=== PATIENT | male | born 1975 | race Caucasian/White ===

== ENCOUNTER 2017-09-19 09:18 | Emergency (ER) | payer OTHER ==
[2017-09-19] MEDS: NS 1,000 ML IV (10:00)
[2017-09-19] MEDS: ONDANSETRON 4MG/2ML VIAL (J2405) IV (10:00)
[2017-09-19 10:11] LABS: BASO % 0.9 % (0.0-1.0); EOS # 0.1 10^3/uL (0.0-0.50); EOS % 1.3 % (0.0-3.0); IMMATURE GRANULOCYTE % 0.4 % (0-0); LYMPH # 1.2 10^3/uL (1.5-4.5); LYMPH % 27.6 % (24.0-44.0); MEAN CORPUSCULAR HEMOGLOBIN 30.1 pg (27.0-33.0); MEAN CORPUSCULAR HGB CONC 34.7 g/dl (32.0-36.5); MEAN CORPUSCULAR VOLUME 86.9 fl (80.0-96.0); MONO # 0.6 10^3/uL (0.0-0.8); MONO % 13.3 % (0.0-5.0); NEUTROPHILS # 2.5 10^3/uL (1.8-7.7); NEUTROPHILS % 56.5 % (36.0-66.0); PLATELET COUNT, AUTOMATED 162 10^3/uL (150-450); RED CELL DISTRIBUTION WIDTH 12.5 % (11.5-14.5); WHITE BLOOD COUNT 4.5 10^3/uL (4.0-10.0)
[2017-09-19 10:17] LABS: KETONE, URINE AUTO RFX TRACE mg/dL (NEGATIVE); LEUKOCYTE ESTERASE UR AUTO RFX NEGATIVE (NEGATIVE); MUCUS, URINE RFX LARGE (NEGATIVE); NITRITE, URINE AUTO RFX NEGATIVE (NEGATIVE); RBC, URINE AUTO RFX 3 /HPF (0-3); SPECIFIC GRAVITY UR AUTO RFX 1.026 (1.002-1.035); SQUAM EPITHELIAL CELL UR AURFX 0 /HPF (0-6); WBC, URINE AUTO RFX 3 /HPF (0-3)
[2017-09-19 10:28] LABS: ALBUMIN 4.4 GM/DL (3.2-5.2); ALBUMIN/GLOBULIN RATIO 1.22 (1.00-1.93); ALKALINE PHOSPHATASE 73 U/L (45-117); ALT/SGPT 41 U/L (12-78); ANION GAP 6 MEQ/L (8-16); AST/SGOT 18 U/L (7-37); BILIRUBIN,DIRECT 0.2 MG/DL (0.0-0.2); BILIRUBIN,TOTAL 0.6 MG/DL (0.2-1.0); BLOOD UREA NITROGEN 13 MG/DL (7-18); CALCIUM LEVEL 8.6 MG/DL (8.5-10.1); CARBON DIOXIDE LEVEL 29 MEQ/L (21-32); CHLORIDE LEVEL 101 MEQ/L (98-107); CREATININE FOR GFR 1.01 MG/DL (0.70-1.30); GLOMERULAR FILTRATION RATE > 60.0 (>60); GLUCOSE, FASTING 88 MG/DL (70-105); POTASSIUM SERUM 3.8 MEQ/L (3.5-5.1); SODIUM LEVEL 136 MEQ/L (136-145)
== END 2017-09-19 11:38 | disposition home or self-care (01) ==
LOC: M ED 09:18
DX: K52.9 Noninfective gastroenteritis and colitis, unspecified (principal)
CPT/HCPCS: J2405

== ENCOUNTER → 2018-01-22 | Outpatient (CLI) | payer OTHER | LOC: M WUC 16:59 | DX: R06.02 Shortness of breath (principal) | CPT/HCPCS: 71046 ==

== ENCOUNTER → 2018-05-10 | Outpatient (CLI) | payer OTHER | LOC: M WUC 14:43 | DX: S00.83XA Contusion of other part of head, initial encounter (principal); Y92.89 Other specified places as the place of occurrence of the external cause; Y93.89 Activity, other specified; Y99.8 Other external cause status; X58.XXXA Exposure to other specified factors, initial encounter | CPT/HCPCS: 70110 ==

== ENCOUNTER 2018-05-16 15:44 | Emergency (ER) | payer OTHER | END 2018-05-16 18:08 | disposition home or self-care (01) | LOC: M ED 15:44 | DX: S86.812A Strain of other muscle(s) and tendon(s) at lower leg level, left leg, initial encounter (principal); X50.9XXA Other and unspecified overexertion or strenuous movements or postures, initial encounter; Y92.009 Unspecified place in unspecified non-institutional (private) residence as the place of occurrence of the external cause; Z87.891 Personal history of nicotine dependence; Z79.899 Other long term (current) drug therapy | CPT/HCPCS: 73564 ==

== ENCOUNTER → 2018-06-20 | Outpatient (CLI) | payer OTHER | LOC: M RAD 16:15 | DX: M26.622 Arthralgia of left temporomandibular joint (principal) | CPT/HCPCS: 70486 ==

== ENCOUNTER 2019-07-31 08:12 | Outpatient (RCR) | payer OTHER ==
[~2019-07-31 08:12] MED LIST: ASPI-161 PO; AVEL1TAB2 OR; GABA-1171; IBUP800T OR; No Historical Meds; TESS100C OR; TRAM50TA2 PO; ZOFR4TAB14 PO; ZOLP10TA2
== END 2019-08-26 ==
LOC: M OT 08:12
PROVIDERS: ATTEND Physician Assistant Medical
DX: Z47.89 Encounter for other orthopedic aftercare (principal)

== ENCOUNTER → 2019-09-05 | Outpatient (CLI) | payer OTHER ==
[2019-09-05 13:36] LABS: CORTISOL BASELINE 19.5 UG/DL (4.3-22.4); FOLLICLE STIMULATING HORMONE 6.8 mIU/mL (1.4-18.1); FREE T4 0.68 NG/DL (0.76-1.46); LUTEINIZING HORMONE 4.1 mIU/mL (1.5-9.3); PROLACTIN 0.5 NG/ML (2.1-17.7); THYROID STIMULATING HORMONE 0.777 uIU/ML (0.358-3.740)
== END ==
LOC: M WUC 10:10
PROVIDERS: ATTEND Internal Medicine Endocrinology, Diabetes & Metabolism
DX: R94.6 Abnormal results of thyroid function studies (principal)

== ENCOUNTER → 2023-06-05 | Outpatient (REF) | payer OTHER | LOC: M WUC 10:33 | PROVIDERS: ATTEND Registered Nurse | DX: H60.12 Cellulitis of left external ear (principal) ==

== ENCOUNTER → 2024-03-07 | Outpatient (CLI) | payer OTHER ==
[~2024-03-07] MED LIST changes: -ASPI-161 PO; +ASPI-615 PO
[2024-03-07 18:20] LABS: HEMATOCRIT 45.3 % (42.0-52.0); HEMOGLOBIN 15.4 g/dl (13.5-17.5); MEAN CORPUSCULAR VOLUME 91.1 fl (80.0-96.0); PLATELET COUNT, AUTOMATED 144 10^3/uL (150-450); RED BLOOD COUNT 4.97 10^6/uL (4.30-6.10)
[2024-03-07 18:39] LABS: APPEARANCE, URINE CLEAR (CLEAR); BACTERIA, URINE AUTO NEGATIVE (NEGATIVE); BILIRUBIN, URINE AUTO NEGATIVE (NEGATIVE); BLOOD, URINE BLOOD NEGATIVE (NEGATIVE); COLOR, URINE YELLOW (YELLOW); GLUCOSE, URINE (UA) AUTO NEGATIVE (NEGATIVE); KETONE, URINE AUTO NEGATIVE (NEGATIVE); LEUKOCYTE ESTERASE, URINE AUTO NEGATIVE (NEGATIVE); MUCUS, URINE SMALL (NEGATIVE); NITRITE, URINE AUTO NEGATIVE (NEGATIVE); PROTEIN, URINE AUTO NEGATIVE (NEGATIVE); RBC, URINE AUTO 1 /HPF (0-3); SPECIFIC GRAVITY URINE AUTO 1.013 (1.002-1.035); SQUAMOUS EPITHELIAL CELL UR AU 0 /HPF (0-6); UROBILINOGEN, URINE AUTO 0.2 mg/dL (0.0-2.0); WBC, URINE AUTO 0 /HPF (0-3)
[2024-03-07 18:46] LABS: ALBUMIN 4.3 G/DL (3.2-5.2); ALKALINE PHOSPHATASE 100 U/L (46-116); ALT/SGPT 79 U/L (7.0-40); AST/SGOT 36 U/L (<34); BILIRUBIN,TOTAL 0.5 MG/DL (0.3-1.2); BLOOD UREA NITROGEN 14 MG/DL (9-23); CALCIUM LEVEL 9.6 MG/DL (8.5-10.1); CARBON DIOXIDE LEVEL 30 MMOL/L (20-31); CHLORIDE LEVEL 103 MMOL/L (98-107); CHOLESTEROL LEVEL 187 MG/DL (<200); CHOLESTEROL RISK RATIO 3.06 (<5); CREATININE FOR GFR 0.87 MG/DL (0.70-1.30); GLOMERULAR FILTRATION RATE > 60.0 (>60); GLUCOSE, FASTING 89 MG/DL (60-100); LDL CHOLESTEROL 95.8 MG/DL (<100); POTASSIUM SERUM 4.6 MMOL/L (3.5-5.1); SODIUM LEVEL 138 MMOL/L (136-145); TOTAL PROTEIN 7.3 G/DL (5.7-8.2); TRIGLYCERIDES LEVEL 151 MG/DL (<150)
[2024-03-07 18:48] LABS: THYROID STIMULATING HORMONE 2.352 uIU/ML (0.55-4.78)
[2024-03-08 15:53] LABS: WHITE BLOOD COUNT 6.8 10^3/uL (4.0-10.0)
== END ==
LOC: M WUC 15:08
PROVIDERS: ATTEND Physician Assistant
DX: E78.5 Hyperlipidemia, unspecified (principal); E05.90 Thyrotoxicosis, unspecified without thyrotoxic crisis or storm; R35.1 Nocturia